=== PATIENT | female | born 1960 | race Caucasian/White ===

== ENCOUNTER 2017-04-19 19:05 | Emergency (ER) | payer BC, OTHER ==
[~2017-04-19] VITALS: Ht 165.1 cm; Wt 58.0 kg
[~2017-04-19 19:05] MED LIST: AMOX875T20 PO
[2017-04-19 19:06] VITALS: BP 122/85; PULSE 105; RESP 16; TEMP 99.1; O2SAT 97
[2017-04-19] MEDS ORDERED: MORPHINE SULFATE 4 MG/ML INJ IV PUSH ONE (19:45)
[2017-04-19] MEDS ORDERED: ONDANSETRON HCL 4 MG/2 ML VIAL IVP ONE (19:45)
[2017-04-19] MEDS ORDERED: SODIUM CHLORIDE 0.9% FLUSH 10 ML FLUSH IV FLUSH PRN (19:45)
--- NOTE | 2017-04-19 19:55 | PD ---
HPI . Right lower quadrant pain Chief Complaint: Abdominal Pain Time Seen by Provider: 19:40 Travel History International Travel<30 days: No Contact w/Intl Traveler<30days: No Traveled to known affect area: No History of Present Illness HPI Patient presents with right lower quadrant pain which started about 3 AM. It has been getting progressively worse since that time. It is associated with poor appetite and nausea. She has had a low-grade fever. She denies any urinary tract symptoms such as dysuria, frequency or urgency. Nothing exacerbates her abdominal pain. Nothing relieves it. She rates it as 7/10. Patient was seen earlier today at an urgent care center and diagnosed with a bladder infection. She has taken only prescribed medication but states that her symptoms are getting worse rather than better. PFSH Past Medical History Medical History: Denies Significant Hx Diminished Hearing: No Tetanus Vaccination: < 5 Years Influenza Vaccination: No ?: Not Past Surgical History Surgical History: No Previous Surgery Social History Alcohol Use: No Tobacco Use: No Substance Use: No Allergies-Medications (Allergen,Severity, Reaction): Coded Allergies: No Known Allergies (Unverified , 04/19/17) Reported Meds & Prescriptions Reported Meds & Active Scripts Active No Active Prescriptions or Reported Medications Review of Systems Except as stated in HPI: all other systems reviewed are Neg General / Constitutional: Positive: Fever Gastrointestinal: Positive: Nausea, Abdominal Pain, No: Vomiting, Diarrhea Genitourinary: No: Urgency, Frequency, Dysuria Physical Exam Narrative GENERAL: Patient is awake and alert and in no acute distress. SKIN: Warm and dry. HEAD: Atraumatic. Normocephalic. EYES: Pupils equal and round. Extraocular movements are intact. ENT: No nasal bleeding or discharge. Mucous membranes pink and moist. NECK: Trachea midline. Neck is supple. CARDIOVASCULAR: Regular rate and rhythm. Heart sounds normal. RESPIRATORY: No accessory muscle use. Lungs are clear with full air movement throughout. GASTROINTESTINAL: Abdomen soft. Bowel sounds present. Mild right lower quadrant tenderness. No CVA tenderness. Nondistended. MUSCULOSKELETAL: No obvious deformities. No edema. NEUROLOGICAL: Awake and alert. No obvious cranial nerve deficits. Motor grossly within normal limits. Normal speech. PSYCHIATRIC: Appropriate mood and affect; insight and judgment normal. Data Data Last Documented VS Vital Signs Date Time Temp Pulse Resp B/P Pulse Ox O2 Delivery O2 Flow Rate FiO2 04/19/17 19:06 99.1 105 16 122/85 97 Room Air Orders Basic Metabolic Panel (Bmp) (04/19/17 19:40) Complete Blood Count With Diff (04/19/17 19:40) Urinalysis - C+S If Indicated (04/19/17 19:40) Ct Abd/Pel W Iv Contrast(Rout) (04/19/17 19:40) Iv Access Insert/Monitor (04/19/17 19:40) Morphine Inj (Morphine Inj) (04/19/17 19:45) Ondansetron Inj (Zofran Inj) (04/19/17 19:45) Sodium Chloride 0.9% Flush (Ns Flush) (04/19/17 19:45) Iohexol 350 Inj (Omnipaque 350 Inj) (04/19/17 20:22) Urine Culture (04/19/17 19:53) Ceftriaxone Inj (Rocephin Inj) (04/19/17 21:15) Labs Laboratory Tests Test 04/19/17 19:53 White Blood Count 8.6 TH/MM3 Red Blood Count 4.47 MIL/MM3 Hemoglobin 14.3 GM/DL Hematocrit 41.6 % Mean Corpuscular Volume 93.0 FL Mean Corpuscular Hemoglobin 32.1 PG Mean Corpuscular Hemoglobin 34.5 % Concent Red Cell Distribution Width 12.3 % Platelet Count 182 TH/MM3 Mean Platelet Volume 8.4 FL Neutrophils (%) (Auto) 72.6 % Lymphocytes (%) (Auto) 17.4 % Monocytes (%) (Auto) 8.0 % Eosinophils (%) (Auto) 1.7 % Basophils (%) (Auto) 0.3 % Neutrophils # (Auto) 6.3 TH/MM3 Lymphocytes # (Auto) 1.5 TH/MM3 Monocytes # (Auto) 0.7 TH/MM3 Eosinophils # (Auto) 0.1 TH/MM3 Basophils # (Auto) 0.0 TH/MM3 CBC Comment DIFF FINAL Differential Comment Urine Color DARK-YELLOW Urine Turbidity CLEAR Urine pH 7.0 Urine Specific [place] 1.007 Urine Protein NEG mg/dL Urine Glucose (UA) NEG mg/dL Urine Ketones NEG mg/dL Urine Occult Blood NEG Urine Nitrite POS Urine Bilirubin NEG Urine Urobilinogen LESS THAN 2.0 MG/DL Urine Leukocyte Esterase LARGE Urine RBC 2 /hpf Urine WBC 61 /hpf Urine Mucus FEW /lpf Microscopic Urinalysis Comment CULTURE INDICATED Sodium Level 138 MEQ/L Potassium Level 3.7 MEQ/L Chloride Level 101 MEQ/L Carbon Dioxide Level 27.8 MEQ/L Anion Gap 9 MEQ/L Blood Urea Nitrogen 14 MG/DL Creatinine 1.20 MG/DL Estimat Glomerular Filtration 46 ML/MIN Rate Random Glucose 98 MG/DL Calcium Level 9.2 MG/DL MDM Medical Decision Making Medical Screen Exam Complete: Yes Emergency Medical Condition: Yes Differential Diagnosis Differential diagnosis of abdominal pain includes but is not limited to gastritis, pancreatitis, hepatitis, gastroenteritis, gallbladder disease, constipation, urinary retention, UTI, peptic ulcer disease, diverticulitis or appendicitis Narrative Course Patient presents with right lower quadrant abdominal pain. She will be evaluated for possible appendicitis. CBC & BMP Diagram 04/19/17 19:53 UA is positive for nitrites, leukocyte esterase and white blood cells. CT abd/pelvis: 1. Mildly prominent terminal ileum with lumen measuring upper limits of normal at 2.5 cm. 2. Otherwise negative exam. This patient has a UTI. She does not have any evidence of appendicitis. Diagnosis Primary Impression: Right lower quadrant pain Additional Impression: UTI (urinary tract infection) Qualified Code: N30.00 - Acute cystitis without hematuria Additional Instructions: Continue the Bactrim prescribed earlier. Scripts No Active Prescriptions or Reported Meds Disposition: DISCHARGE HOME Condition: Stable Anila Goncalves MD Apr 19, 2017 19:55
[2017-04-19] MEDS ORDERED: IOHEXOL 350 MG/ML 10 ML VIAL (for RAD DIAG) IV ONE (20:22)
[2017-04-19 20:24] LABS: AUTOMATED NEUTROPHIL # 6.3 TH/MM3 (1.8-7.7); BASOPHIL % 0.3 % (0.0-2.0); EOSINOPHIL # 0.1 TH/MM3 (0-0.4); EOSINOPHIL % 1.7 % (0.0-4.0); HEMATOCRIT 41.6 % (35.0-46.0); HEMO FLAGS DIFF FINAL; LYMPH % 17.4 % (9.0-44.0); LYMPHOCYTE # 1.5 TH/MM3 (1.0-4.8); MEAN CORPUSCULAR HEMOGLOBIN 32.1 PG (27.0-34.0); MEAN CORPUSCULAR HGB CONC 34.5 % (32.0-36.0); NEUT % 72.6 % (16.0-70.0); PLATELET COUNT 182 TH/MM3 (150-450); RED BLOOD COUNT 4.47 MIL/MM3 (4.00-5.30); RED CELL DISTRIBUTION WIDTH 12.3 % (11.6-17.2); WHITE BLOOD COUNT 8.6 TH/MM3 (4.0-11.0)
[2017-04-19 20:46] LABS: BICARBONATE 27.8 MEQ/L (21.0-32.0); POTASSIUM 3.7 MEQ/L (3.5-5.1)
[2017-04-19 20:57] LABS: BLOOD, URINE NEG (NEG); GLUCOSE,URINE NEG (NEG); KETONE, URINE NEG (NEG); MUCUS URINE FEW /lpf (OCC); NITRITE,URINE POS (NEG); URINE COLOR DARK-YELLOW (YELLW/STRAW)
[2017-04-19 20:58] LABS: COMMENT (UR) CULTURE INDICATED; CULTURE IF INDICATED CULTURE INDICATED
[2017-04-19] MEDS ORDERED: cefTRIAXone INJ 1,000 MG in SODIUM CHLORIDE 0.9% INJ 100 ML IV ONE (21:15)
--- NOTE | 2017-04-19 21:56 | RADRPT ---
EXAM DATE/TIME: 04/19/2017 20:12 [facility] COMPARISON: No previous studies available for comparison. INDICATIONS : Right lower abdomen pain today. IV CONTRAST: 72 cc Omnipaque 350 (iohexol) IV ORAL CONTRAST: No oral contrast ingested. RADIATION DOSE: 4.79 CTDIvol (mGy) MEDICAL HISTORY : None SURGICAL HISTORY : oophorectomy ENCOUNTER: Initial ACUITY: 1 day PAIN SCALE: 7/10 LOCATION: Right lower quadrant TECHNIQUE: Volumetric scanning of the abdomen and pelvis was performed. Using automated exposure control and ad justment of the mA and/or kV according to patient size, radiation dose was kept as low as reasonably achievable to obtain optimal diagnostic quality images. FINDINGS: LOWER LUNGS: The visualized lower lungs are clear. LIVER: Homogeneous density without lesion. There is no dilation of the biliary tree. No calcified gallston es. SPLEEN: Normal size without lesion. PANCREAS: Within normal limits. KIDNEYS: Normal in size and shape. There is no mass, stone or hydronephrosis. ADRENAL GLANDS: Within normal limits. VASCULAR: There is no aortic aneurysm. BOWEL/MESENTERY: No dilated loops of small or large bowel. The terminal ileum is slightly more prominent than other l oops of small bowel compatible measures 2.5 cm and the lumen contains fluid; no wall thickening. The appendix is not identified, but there is no induration seen about the cecum. ABDOMINAL WALL: Within normal limits. RETROPERITONEUM: There is no lymphadenopathy. BLADDER: No wall thickening or mass. REPRODUCTIVE: Within normal limits. INGUINAL: There is no lymphadenopathy or hernia. MUSCULOSKELETAL: Within normal limits for patient age. CONCLUSION: 1. Mildly prominent terminal ileum with lumen measuring upper limits of normal at 2.5 cm. 2. Otherwise negative exam. Chester Henry MD on April 19, 2017 at 21:51 Board Certified Radiologist. This report was verified electronically.
== END 2017-04-19 22:38 | disposition home or self-care (01) ==
LOC: NEPC 19:05
DX: N39.0 Urinary tract infection, site not specified (principal); R10.31 Right lower quadrant pain
CPT/HCPCS: 74177; 80048; 81001; 85025; 87086; 96374; 96375; 99285; J0696; J2270; J2405; Q9967